=== PATIENT | male | born 1945 | race Caucasian/White ===

== ENCOUNTER 2018-10-23 06:20 | Day surgery (SDC) | payer BC ==
[2018-10-23] VITALS (14 sets, daily range): BP systolic 138–171; BP diastolic 57–77; PULSE 60–75; RESP 12–21; Ht 175.3 cm; Wt 94.9 kg
[~2018-10-23] VITALS: Ht 175.3 cm; Wt 94.9 kg
[2018-10-23] MEDS ORDERED: LIDOCAINE 2% (SDV) 5 ML INJ ONE (07:10)
[2018-10-23] MEDS ORDERED: PROPOFOL 20 ML ONE (07:10)
[2018-10-23] MEDS ORDERED: PHENYLephrine (100 MCG/ML) 5ML SYG ONE (07:11)
[2018-10-23] MEDS ORDERED: MIDAZOLAM 1 MG/ML 2 ML INJ ONE (07:11)
[2018-10-23] MEDS ORDERED: LIDOCAINE 1% (MPF) 30 ML INJ ONE (07:33)
[2018-10-23] MEDS ORDERED: BUPIVACAINE 0.5% (SDV) 30 ML INJ ONE (07:33)
[2018-10-23] MEDS ORDERED: DEXAMETHASONE 4 MG/ML 1 ML INJ ONE (07:34)
[2018-10-23] MEDS ORDERED: POLYMYXIN/BACITRACIN 1L IRRIG ONE (07:37)
--- NOTE | 2018-10-23 07:50 | PREAC ---
Date/Time of Note Date/Time of Note DATE: 10/23/18 TIME: 07:45 Anesthesia Eval and Record Evaluation Time Pre-Procedure Interview DATE: 10/23/18 TIME: 07:45 Age 73 Sex male NPO: 8 hrs Preoperative diagnosis Hallux Rigidus Planned procedure Left 1st metatarsophalanangeal joint implant Past Medical History Past Medical History: Includes Cardio: HTN, Dyslipidemia Endo: Diabetes (BS 66) GI: Obesity Surgery & Anesthesia Issues No known issue Meds Anticoagulation: No Beta Ra within 24 hr: No Reason Beta Ra not given: Pt. not on B-Ra Current Medications Dextrose 1,000 ml @ 20 mls/hr Q24H IV ; Start 10/23/18 at 08:00 Meds reviewed: Yes Allergies Coded Allergies: No Known Allergy (Unverified , 10/23/18) Allergies Reviewed: Yes (Losartan) Labs/Studies Labs Reviewed: Reviewed by anesthesiologist test: N/A Studies: ECG (SB), CXR (WNL) Pre-procedure Exam Airway: Adequate mouth opening, Adequate thyromental dist Mallampati: Mallampati III Teeth: Normal Lung: Normal Heart: Normal ASA Physical Status ASA physical status: 3 (A1C 7.1) Emergency: None Planned Anesthetic General/MAC: LMA Pre-operative Attestations Prior to commencing anesthesia and surgery, the patient was re-evaluated, there was verification of: *The patient's identity *The results of appropriate recent lab work and preoperative vital signs *The above evaluation not changing prior to induction *Anesthetic plan, risk benefits, alternative and complications discussed with patient/family; questions answered; patient/family understands, accepts and wishes to proceed. RAHEEL REILLY CRNA Oct 23, 2018 07:50
[2018-10-23] MEDS ORDERED: DEXTROSE 5% 1,000 ML IV SCH (08:00)
--- NOTE | 2018-10-23 08:02 | HPN ---
Date/Time of Note Date/Time of Note DATE: 10/23/18 TIME: 08:01 Interval H&P Admission Note Pt. seen H&P reviewed: No system changes CHEVY OSEGUERA DPM Oct 23, 2018 08:02
[2018-10-23] MEDS: DEXTROSE 5%-0.45% NACL 1,000 ML IV SCH (08:08)
[2018-10-23] MEDS ORDERED: ATOR40TA68 PO (08:11)
[2018-10-23] MEDS ORDERED: LEVO175T6 PO (08:11)
[2018-10-23] MEDS ORDERED: DOXAZOSIN PO (08:12)
[2018-10-23] MEDS ORDERED: HYDR25TA6 PO (08:13)
[2018-10-23] MEDS ORDERED: INSU100I31 SQ (08:15)
[2018-10-23] MEDS ORDERED: AMLO2.5T78 PO (08:15)
[2018-10-23] MEDS ORDERED: INSU100C3 SQ (08:15)
[2018-10-23] MEDS ORDERED: ONDANSETRON 4 MG INJ ONE (08:41)
[2018-10-23] MEDS ORDERED: METOCLOPRAMIDE 10 MG INJ ONE (08:42)
[2018-10-23] MEDS ORDERED: MEPERIDINE 25 MG INJ IV PRN (09:30)
[2018-10-23] MEDS ORDERED: ONDANSETRON 4 MG INJ IV PRN (09:30)
[2018-10-23] MEDS ORDERED: OXYCODONE/ACETAMINOPHEN (5/325) TAB PO PRN ×2 (09:30)
[2018-10-23] MEDS ORDERED: LABETALOL HCL 20MG INJ IV PRN (09:30)
[2018-10-23] MEDS ORDERED: FENTAnyl 50 MCG/ML VIAL IV PRN ×2 (09:30)
--- NOTE | 2018-10-23 10:10 | PAC ---
Date/Time of Note Date/Time of Note DATE: 10/23/18 TIME: 10:09 Post-Anesthesia Notes Post-Anesthesia Note Last documented vital signs 169/57, 98%, 74, 12, 97.8 Vital Signs Date Temp Pulse Resp B/P (MAP) Pulse Ox O2 O2 Flow FiO2 Time Delivery Rate 10/23/18 98.7 61 18 149/77 98 08:03 (101) Activity: WNL Respiratory function: WNL Cardiovascular function: WNL Mental status: Baseline Pain reasonably controlled: Yes Hydration appropriate: Yes Nausea/Vomiting absent: Yes RAHEEL REILLY CRNA Oct 23, 2018 10:10
--- NOTE | 2018-10-23 10:29 | OPR ---
Date/Time of Note Date/Time of Note DATE: 10/23/18 TIME: 10:26 Operative Report Procedure Date: Oct 23, 2018 Preoperative Diagnosis hallux rigidus left foot, dorsal midfoot exostosis left foot Postoperative Diagnosis same as above Operation/Procedure Performed 1st MPJ total arthroplasty, left foot. Synovectomy 1st MPJ, left foot. Dorsal exostectomy of 1st and 2nd metatarsals and medial cuneiform, left foot. Nerve decompression dorsal left foot. Surgeon see signature line Business Division Chair TOMMY BAIN DPM Anesthesia Type: general Estimated Blood Loss: none Transfusion none Specimen left 1st MPJ synovial tissue with synovitis Grafts/Implants none Complications none Procedure Description SEE DICTATED OP REPORT CHEVY OSEGUERA DPM Oct 23, 2018 10:29
[2018-10-23] MEDS ORDERED: KETOROLAC 15 MG INJ IV PRN (10:30)
--- NOTE | 2018-10-23 11:50 | NUR ---
PT IS S/P LEFT FOOT METATARSAL ARTHROPLASTY( SEE CONSENT FOR FULL PROCEDURE) DRESSING CDI . SHOE BOOT APPLIED AND CRUTCH TRAINING PROVIDED. PT TO CALL OFFICE FOR FOLLOW UP APPT. D/C INSTRUCTIONS GIVEN.
--- NOTE | 2018-11-01 18:53 | OPR ---
DATE OF OPERATION: 10/23/2018 PREOPERATIVE DIAGNOSES: 1. Hallux limitus with degenerative joint disease of the 1st metatarsophalangeal joint, left foot. 2. Prominent exostosis of the dorsal 1st metatarsal base, left foot. 3. Prominent exostosis of the dorsal medial cuneiform, left foot. 4. Neuritis with probable nerve entrapment of the dorsal left foot. 5. Pain and difficulty in ambulation secondary to the above left foot. POSTOPERATIVE DIAGNOSES: 1. Hallux limitus with degenerative joint disease of the 1st metatarsophalangeal joint, left foot. 2. Synovitis with inflamed synovial tissue of the 1st metatarsophalangeal joint and capsule, left fo ot. 3. Prominent exostosis of the dorsal 1st metatarsal base, left foot. 4. Prominent exostosis of the dorsal medial cuneiform, left foot. 5. 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 6. Pain and difficulty in ambulation secondary to the above left foot. OPERATIONS PERFORMED: 1. Implant arthroplasty of the 1st metatarsophalangeal joint, left foot. 2. Synovectomy and synovial tissue biopsy of the 1st metatarsophalangeal joint, left foot. 3. Exostectomy and remodeling the dorsal base of the 1st metatarsal, left foot. 4. Exostectomy and remodeling of the dorsal medial cuneiform, left foot. 5. Decompression of the saphenous nerve, left foot. 6. Use and interpretation of intraoperative fluoroscopy. SURGEON: Joseph Martinez DPM TOOL SHARPENER: Deandra Saldaña DPM ANESTHESIA: Local with intravenous sedation. DESCRIPTION OF PROCEDURE: The patient was brought into the operating room and placed on the [facility] g room table in a secure and supine position. Following the administration of intravenous sedation, approximately 20 mL of 0.5% Marcaine plain was administered into the left foot in a regional Perez ner ve block fashion as well as along the tarsometatarsal joint area. A pneumatic tourniquet was then pl aced on the left ankle. The left foot was then prepped and draped in the usual sterile manner. An E smarch bandage was used to exsanguinate the left foot and then the pneumatic ankle tourniquet was inf lated to 250 mmHg. Attention was then directed to the medial aspect of the 1st metatarsophalangeal j oint of the left foot. PROCEDURE 1: A #10 blade was utilized to create a linear longitudinal incision centered over the med ial aspect of the left first metatarsophalangeal joint. The incision was deepened to the level of th e subcutaneous tissue and fascia. All vital structures were identified, underscored and retracted do rsally and plantarly. All bleeders were bovied as necessary. The incision was then deepened to the level of the metatarsophalangeal joint capsule, which was dissected free from all underlying soft tis ashley attachment. At this time, a linear capsulotomy was performed and a periosteal elevator was then used to dissect the capsule from the underlying hypertrophied bone. The remainder of the capsule alvarez corrine and plantarly was dissected free from the underlying osseous structures. In addition, the caps ule was extremely hypertrophied on his internal aspect with synovitis and synovial discoloration and abnormality. The 1st metatarsal was then dissected free of all soft tissue capsular and ligamentous attachments delivering the 1st metatarsal into the surgical site. Following this, a lateral release was performed with a #15 blade to the joint capsule through the joint space and dorsally into the int erspace including all lateral ligamentous and capsular structures allowing for transverse plane mobil ization of the hallux. The extensor tendons were not disturbed. A McGlamry elevator was then used t o further release the 1st metatarsal head completely. Following this, attention was then directed ba ck to the 1st metatarsal head articular surface which was inspected and found to be moderately deteri orated. The base of the proximal phalanx was also noted to be degenerative. In addition, there were large dorsal osseous masses present at the 1st metatarsal head and fragments of the dorsal base of t he phalanx. Following this, the osteotomy guide from the Primus 1st metatarsophalangeal joint was pl aced over the 1st metatarsophalangeal joint. Following this, the guidewire was then used to create t he bone cuts in the 1st metatarsal and base of the proximal phalanx and these cuts were scored on the bone and then the guide was removed. The osteotomies were then completed freehand. Following this, the osteotomy was removed. The distal half of the head of the 1st metatarsal containing articular s urface was completed through and through from medial to lateral and this was removed from the surgica l site in toto. Following this, the osteotomy of the base of the proximal phalanx was similarly comp leted through and through from medial to lateral and this fragment was also removed from the surgical site in toto. The sesamoid apparatus was not disturbed. Intraoperative fluoroscopy was used to ass ess the adequacy of the resection sites as well as overall orientation and these were noted to be sat isfactory. However, it was determined that additional bone resection was required from both the base of the proximal phalanx and the 1st metatarsal head and this was performed as needed. However, it w as noted that a significant amount of bone was not necessarily needed to be removed. Once this was c ompleted, a power sagittal saw was then used to further refine the head of the 1st metatarsal area an d the base of the proximal phalanx. A power cross cut rasp was then further used to smoothen the are a of any bony abnormalities or irregularities. Once this was completed, the area was flushed with co pious amounts of sterile saline and antibiotic solution. At this time, it was necessary to create th e canals for the implant. The center of the adjacent surfaces of the base of the proximal phalanx an d the remaining head of the 1st metatarsal was marked. A power bur was then used to create pil ot holes for the reamers from the implant set. Once the adequate size pest control pilot holes were created, the distal large reamer from the set was placed into the hole and power driven to create a full depth hol e in the center of the proximal phalanx for the appropriate sized distal stem of the implant. This w as then further refined with a mallet. The same procedure was performed using larger proximal reamer into the pest control pilot hole in the 1st metatarsal head with extreme care taken not to breakthrough any of th e cortical merino of the 1st metatarsal. Once all reaming was completed, it was elected to proceed wi th trial sizers of the Primus implant set. The area was flushed with copious amounts of sterile sali ne antibiotic solution. The size 30 and 40 implant sizes were utilized and it was noted that size 30 was too small and the size 40 was selected at the appropriate size. The trial sizer was then remove d and replaced with an implantable true size 40 implant and there appeared to be excellent fit and fu nction and position of the implant. This was confirmed under intraoperative fluoroscopy. No grommet s were used. The area was again flushed with copious amounts of sterile saline antibiotic solution. The 1st metatarsophalangeal joint motion was then tested and approximately 90 degrees of dorsiflexio n was achievable. It should be noted that the patient may lose some of the dorsiflexion following centeno rgery due to scar tissue and contracture; however, no pain should be present following surgery and a significant increase in motion will be achieved. This was visualized under intraoperative fluoroscop y including a 90 degree dorsiflexion of the hallux and intraoperative photos were taken as well. The implant was not prominent in any area and fit excellent. The function was also noted to be excellen t. There were no problems noted at this time. PROCEDURE 2: At this time, it was elected to proceed with an extensive synovectomy of the inner port ion of the 1st metatarsophalangeal joint capsule as well as the medial and plantar capsular area. La rge quantities of abnormal looking hypertrophied discolored synovial tissue from the dorsal aspect of the inner capsule and medial aspect of the capsule were excised from the surgical site to complete t he synovectomy and these were transferred to a specimen container for pathology. The area was once a gain flushed with copious amounts of sterile saline antibiotic solution. At this time, it was electe d to proceed with closure. The capsular tissue was closed with 3-0 Vicryl. The subcutaneous tissue was coapted and maintained with 4-0 Vicryl. The skin edges were coapted and maintained with 3-0 Prol clinton in a running subcuticular type stitch. Attention was then directed to the dorsomedial aspect of the 1st metatarsocuneiform joint. PROCEDURE 3: A #10 blade was utilized to create a linear longitudinal incision centered over the alvarez gertrudis medial aspect of the 1st metatarsocuneiform joint directly over the dorsal prominence. The incis ion was then deepened to the level of the subcutaneous tissue and fascia. All vital structures were identified and retracted medially and laterally. It was noted the saphenous nerve was entrapped with in a thick fibrous scar in the general vicinity as well and will be addressed further. All bleeders were bovied or clamped as necessary. The incision was then deepened down to bone and a orellana elevator was used to free the base of the 1st metatarsal of all overlying soft tissue attachments. Once this was achieved, the dorsal 1st metatarsal base was exposed and it was noted there was a partially detac hed osseous fragment which was mobile on his distal aspect. A bone cutter was used to resect the pro minent and semi-mobile fragment on the dorsal aspects. Following this, an ostectomy was performed wi th a sagittal saw which was utilized to resect the prominence at the base of the 1st metatarsal. Thi s was then rasped smooth with a power rasp. The area was palpated and there were no prominences note d. The area was explored further laterally to the 2nd metatarsal base which also had a prominence th at required remodeling and will be returned to. PROCEDURE 4: The original incision was extended proximally and further deepened down to bone and a k ey elevator was used to free the dorsal aspect of the medial cuneiform of all overlying soft tissue a ttachments. Once this was achieved, the dorsal aspect was partially resected and an exostectomy was performed with a sagittal saw. Following this, any remaining prominence of the medial cuneiform was then rasped smooth with the power crosscut rasp. The area was palpated and there were no prominences noted. The surgical site was flushed with copious amounts of sterile saline antibiotic solution. F ollowing this, bone wax was applied over all resection sites. PROCEDURE 5: At the dorsal area of the 1st metatarsocuneiform joint, the intraoperative saphenous ne rve was isolated. The nerve was then dissected free from the surrounding fibrous scar tissue taking extreme care not to violate the nerve itself. Utilizing blunt dissection, the canal from which the n erve emanated within the muscle belly was also distracted and expanded to reduce pressure on the nerv e fibers. The remaining tissue surrounding the nerve was released to remove all sources of pressure. Following completion of this, it was confirmed that the nerve was intact. The subcutaneous tissue and fascia was coapted and maintained with 4-0 Vicryl. The skin edges were coapted and maintained wi th 3-0 Prolene in a running subcuticular fashion. A dry sterile dressing consisting of tincture of b enzoin, Steri-Strips, Xeroform, 4 x 4's, Mary and Coban was fashioned into a semi-compressive dressi ng. It should be noted that prior to the completion of the dressing, a 2 mL mixture of 1:1 of 0.5% M arcaine plain and dexamethasone phosphate was administered proximal to the surgical sites for postope rative pain and inflammation. An additional 6 mL of 0.5% Marcaine plain was also administered for an additional anesthesia. The pneumatic ankle tourniquet was deflated and capillary filling time was i nstantaneous to the left foot and all digits were warm and viable. PROCEDURE 6: Use and interpretation of intraoperative fluoroscopy was used throughout the procedures on the left foot to assess the adequacy of bone resection sites and osteotomies as well as position of the implant. Utilization and interpretation of this device was necessary to obtain the best possi ble result for the patient and expose the surgeon and the news production assistant to additional radiation. The pat ient apparently tolerated the procedure well and left the operating room to recover in the recovery r oom with vital signs stable and neurovascular status apparently intact to the left foot. There were no significant complications encountered during this procedure. DISCHARGE INSTRUCTIONS: The patient has postoperative medications and instructions and will follow u p in the office in 3 to 4 days for dressing change and radiographs. The patient was instructed to ma intain the dressing clean, dry and intact. The patient will keep the left foot elevated and ambulate using a Cam walker boot at all times with partial weightbearing on the left heel. The patient has a ll appropriate pain anti-inflammatory medications. The patient was advised to minimize overall ambul ation in the interim and to contact me immediately if any problems arise. Dictated By: DEANDRA PARIKH Conf#: [id number] DID#: [id number]
== END 2018-10-23 11:50 | disposition home or self-care (01) ==
LOC: SDS 06:20
PROVIDERS: ATTEND Podiatrist Foot & Ankle Surgery
DX: M20.5X2 Other deformities of toe(s) (acquired), left foot (principal); D16.32 Benign neoplasm of short bones of left lower limb; M65.872 Other synovitis and tenosynovitis, left ankle and foot; G57.82 Other specified mononeuropathies of left lower limb; I10 Essential (primary) hypertension; E11.9 Type 2 diabetes mellitus without complications; E78.5 Hyperlipidemia, unspecified; E66.9 Obesity, unspecified; Z68.30 Body mass index [BMI] 30.0-30.9, adult
CPT/HCPCS: 28291; 64708; 82962; 88304; J2250; J2370; J2405; J2765; J3010; J1100; J7070